=== PATIENT | male | born 1960 | race Caucasian/White ===

== ENCOUNTER 2024-09-15 06:17 | Day surgery (SDC) | payer MEDICARE ==
[~2024-09-15] VITALS: Ht 177.8 cm; Wt 108.7 kg
[~2024-09-15 06:17] MED LIST: AMAN100T PO; AMIT1TAB12 PO; AMOX875T2 PO; AVOD0.5C PO; CARB25TA9 PO; DULO1CAP5 PO; ENTA1TAB PO; GABA-1172 PO; METO-1 PO; METO50TA7 PO; MOBI15TA PO; PANT40TA29 PO; PHENYLEPHRINE 10% OPHTH SOL 5ML OS PRN; PRIL20CA PO; TAMS1CAP17 PO
[2024-09-15] MEDS: LIDOCAINE 3.5% 1 ML OPHTH TOPICAL GEL OU ONE (07:13)
[2024-09-15] MEDS: OFLOXACIN 0.3 % (OCUFLOX) OPTH SOL 5ML OS ONE (07:13)
[2024-09-15] MEDS: TROPICAMIDE 1% OPHTH SOLN 15ML OS SCH (07:13)
[2024-09-15] MEDS: PHENYLEPHRINE 2.5% OPHTH SOL 2ML OS SCH (07:13)
[2024-09-15] MEDS: CYCLOPENTOLATE 1% OPHTH SOLN 2 ML BTL OS SCH (07:13)
[2024-09-15] MEDS ORDERED: MIDAZOLAM INJ 2 MG/2 ML VIAL As Ordered ONE (07:44)
[2024-09-15] MEDS: LIDOCAINE 1% SDV 5 ML VIAL As Ordered ONE (08:27)
[2024-09-15] MEDS: CEFUROXIME 1 MG/0.1 ML INTRACAMERAL INJ As Ordered ONE (08:27)
[2024-09-15] MEDS: BSS IRRIG/VANCO(10MG)/TOBRA(5MG)/EPINEPH(1:1000-0.5CC)500ML BAG-ORONLY As Ordered ONE (08:27)
[2024-09-15 08:33] VITALS: BP 150/88; TEMP 97; O2SAT 100
== END 2024-09-15 09:10 | disposition home or self-care (01) ==
LOC: M SDC 06:17
PROVIDERS: ATTEND Ophthalmology
DX: H25.89 Other age-related cataract (principal); I10 Essential (primary) hypertension; J45.909 Unspecified asthma, uncomplicated; G20.C Parkinsonism, unspecified; N40.0 Benign prostatic hyperplasia without lower urinary tract symptoms; G62.9 Polyneuropathy, unspecified; Z79.899 Other long term (current) drug therapy; Z85.038 Personal history of other malignant neoplasm of large intestine; Z86.73 Personal history of transient ischemic attack (TIA), and cerebral infarction without residual deficits; Z88.5 Allergy status to narcotic agent; Z88.8 Allergy status to other drugs, medicaments and biological substances; Z88.6 Allergy status to analgesic agent; Z90.49 Acquired absence of other specified parts of digestive tract; K21.9 Gastro-esophageal reflux disease without esophagitis; Z92.21 Personal history of antineoplastic chemotherapy
CPT/HCPCS: 66984; J0697; J2250; J3010; V2632